=== PATIENT | female | born 1995 | race Caucasian/White ===

== ENCOUNTER 2019-01-25 09:47 | Emergency (ER) | payer OTHER ==
[~2019-01-25] VITALS: Ht 165.1 cm; Wt 90.7 kg
[2019-01-25] MEDS ORDERED: FLEXERIL PO (11:12)
[2019-01-25] MEDS ORDERED: NORCO 5-325 TA1 EAC1 PO (11:12)
[2019-01-25 11:40] VITALS: BP 116/81
== END 2019-01-25 11:41 | disposition home or self-care (01) ==
LOC: M.ERS 09:47
DX: M25.551 Pain in right hip (principal); M54.5 Low back pain; R21 Rash and other nonspecific skin eruption; Z88.5 Allergy status to narcotic agent

== ENCOUNTER 2019-04-06 09:21 | Emergency (ER) | payer OTHER ==
[~2019-04-06] VITALS: Ht 165.1 cm; Wt 99.8 kg
[~2019-04-06 09:21] MED LIST: FLEXERIL PO; NORCO 5-325 TA1 EAC1 PO
[2019-04-06 10:54] VITALS: BP 131/81
== END 2019-04-06 10:57 | disposition home or self-care (01) ==
LOC: M.ERS 09:21
DX: F17.200 Nicotine dependence, unspecified, uncomplicated (principal); Z88.1 Allergy status to other antibiotic agents